=== PATIENT | male | born 1940 | race Caucasian/White ===

== ENCOUNTER 2019-02-09 12:32 | Inpatient (IN) | payer MEDICARE ==
[~2019-02-09] VITALS: Ht 185.4 cm; Wt 75.7 kg
[2019-02-09] VITALS (7 sets, daily range): BP systolic 139–160; BP diastolic 72–94
[~2019-02-09 12:32] MED LIST: NO MEDS
--- NOTE | 2019-02-09 12:42 | NUR ---
BIB ra found by son altered from home. Patient changed into gown, patient a/ox2-3, breathing even and unlabored, no sob noted. PIV on left hand patent and flushes well. Attached to the marketing project lead.
[2019-02-09] MEDS ORDERED: LORAZEPAM INJ 2 MG/ML VIAL ONE (12:48)
--- NOTE | 2019-02-09 12:54 | NUR ---
patient taken to ct.
[2019-02-09 13:00] LABS: BASOPHILS # (AUTO) 0.2 /CMM (0.0-0.2); BASOPHILS % (AUTO) 0.5 % (0.0-2.0); HEMATOCRIT 50 % (39-51); HEMOGLOBIN 16.5 g/dL (13.5-17.5); LYMPHOCYTES # (AUTO) 0.5 /CMM (0.8-4.8); LYMPHOCYTES % (AUTO) 1.4 % (20.0-44.0); MEAN CORPUSCULAR HGB CONC 33 g/dl (31.0-36.0); MEAN CORPUSCULAR VOLUME 102 fL (80-96); MONOCYTES # (AUTO) 2.1 /CMM (0.1-1.30); MONOCYTES % (AUTO) 6.1 % (2.0-12.0); PLATELET COUNT (AUTO) 347 /CMM (150-450); RED BLOOD CELL COUNT(AUTO) 4.94 MIL/uL (4.5-6.0)
[2019-02-09] MEDS ORDERED: LORAZEPAM INJ 2 MG/ML VIAL IV ONE (13:00)
[2019-02-09] MEDS ORDERED: IV NS 0.9% 1,000 ML BAG IV ONE ×2 (13:00→13:30)
[2019-02-09 13:02] LABS: WHITE BLOOD COUNT (AUTO) 34.8 K/uL (4.3-11.0)
[2019-02-09 13:22] LABS: ALANINE AMINOTRANSFERASE 144 U/L (12-78); ALBUMIN 2.4 g/dL (3.4-5.0); ALCOHOL, BLOOD < 3 mg/dL (0-0); ALKALINE PHOSPHATASE 127 U/L (46-116); ASPARTATE AMINOTRANSFERASE 119 U/L (15-37); BILIRUBIN,DIRECT 0.4 mg/dL (0.0-0.2); CALCIUM, SERUM 9.6 mg/dL (8.5-10.1); CARBON DIOXIDE 18 mmol/L (21-32); CHLORIDE 94 mmol/L (98-107); CREATININE 6.6 mg/dL (0.6-1.3); GLUCOSE 94 mg/dL (74-106); POTASSIUM 5.9 mmol/L (3.5-5.1); SODIUM SERUM 133 mmol/L (136-145); TOTAL PROTEIN, SERUM 7.2 g/dL (6.4-8.2)
[2019-02-09 13:23] LABS: ACETAMINOPHEN 0 ug/ml (10-30); SALICYLATE 1.4 mg/dL (2.8-20.0); UREA NITROGEN, BLOOD 168 mg/dL (7-18)
[2019-02-09] MEDS ORDERED: CEFEPIME 1 GM in IV NS 0.9% 50 ML IV STA (13:25)
[2019-02-09] MEDS ORDERED: VANCOMYCIN 1 GM in IV NS 0.9% 250 ML IV STA (13:25)
[2019-02-09 13:32] LABS: APPEARANCE,URINE Cloudy (CLEAR); BILIRUBIN,URINE Negative (NEGATIVE); BLOOD, URINE Large Ery/uL (NEGATIVE); KETONES,URINE Negative (NEGATIVE); LEUKOCYTE ESTERASE ,URINE Large (NEGATIVE); NITRITE, URINE Negative (NEGATIVE); PROTEIN,URINE 100 mg/dl (NEGATIVE); UGLUCOSE Negative (NEGATIVE); UROBILINOGEN,URINE 0.2 EU/dL (0.2)
[2019-02-09 13:33] LABS: COLOR,URINE Dark Yellow (YELLOW)
[2019-02-09 13:33] LABS: THYROID STIMULATING HORMONE 0.471 uIU/mL (0.358-3.74)
[2019-02-09 13:40] LABS: BACTERIA,URINE Moderate /HPF (None Seen); RBC,URINE 50-80 /HPF (0-2); SQUAMOUS EPITHELIAL CELL,UR Few /HPF (None Seen); WBC,URINE 80-100 /HPF (0-3)
--- NOTE | 2019-02-09 13:47 | NUR ---
CALLED NURSING SUP. FOR ICU BED
--- NOTE | 2019-02-09 14:02 | NUR ---
PATIENT SLEEPING BUT EASILY AROUSABLE, DAVID. SOFT WRIST RESTRAINTS ORDERED BY DR. HARDEN TO PREVENT PATIENT FROM PULLING OUT LINES OR TUBING.
[2019-02-09 14:07] LABS: BAND % (MANUAL) 1 % (0.0-5.0); LYMPHOCYTES % (MANUAL) 2 % (16-48); MONOCYTES % (MANUAL) 6 % (0-11.0); NEUTROPHILS % (MANUAL) 91 (42-76)
--- NOTE | 2019-02-09 14:10 | NUR ---
ICU 261
[2019-02-09] MEDS ORDERED: Z GUARD REMEDY 2 OZ OINT TP PRN (15:00)
[2019-02-09] MEDS ORDERED: ONDANSETRON HCL/PF 4 MG/2 ML VIAL IVP PRN (15:00)
--- NOTE | 2019-02-09 15:00 | NUR ---
URINE OUTPUT 2800ML AT THIS TIME.
--- NOTE | 2019-02-09 15:26 | NUR ---
attempted to call for report again, per ICU, no nurse available for the patient at this time.
[2019-02-09] MEDS ORDERED: SULF1TAB48 PO (15:46)
[2019-02-09] MEDS ORDERED: CYCL10TA9 PO (15:46)
[2019-02-09] MEDS ORDERED: ASPI-605 PO (15:46)
[2019-02-09] MEDS ORDERED: OXYC-128 PO (15:46)
--- NOTE | 2019-02-09 16:45 | NUR ---
REPORT GIVEN TO MAGDY LYNNE. URINE BAG EMPTIED WITH 1700ML URINE.
--- NOTE | 2019-02-09 17:22 | NUR ---
PATIENT TRANSFERRED TO ROOM 261 VIA ACLS PROTOCOL. PATIENT AROUSABLE, BREATHING EVEN AND UNLABORED, NO SOB NOTED. LLAMAS CATHETER BAG SHOWS YELLOW URINE. PATIENT ENDORSED TO EL LYNNE.
[2019-02-09] MEDS: CEFEPIME 1 GM in IV D5W 50 ML IV SCH (17:26)
[2019-02-09] MEDS: IV NS 0.9% 1,000 ML IV PRN (17:27)
--- NOTE | 2019-02-09 20:00 | NUR ---
RN NOTES RECEIVED PATIENT REP[ORT FROM AM RN. PATIENT IS IN BED SLEEPING BUT AROUSED EASILY . PATIENT IS A/OX1 WITH CONFUSION. NO COMPLAINT OF PAIN OR SOB AT THIS TIME. ST ON DATA BASE ADMINISTRATOR, PT IS ON RA SAT IS WNL. PATIENT IS NPO . LEFT HAND G18 AND RIGHT AC G18 IV LINES ARE PATIENT AND INTACT WITH IVF AT 125ML/HR. LLAMAS CATHETER IS IN PLACE DRAINING YELLOW URINE ON GRAVITY. ALL SAFETY MEASURES ARE IMPLEMENTED BED IN LOW, LOCKED POSITION, CALL LIGHT IN REACH. WILL CONTINUE TO MONITOR PATIENT CLOSELY.
[2019-02-09] MEDS ORDERED: CEFEPIME 1 GM VIAL IM SCH (21:00)
[2019-02-10] VITALS (26 sets, daily range): BP systolic 115–163; BP diastolic 35–99
[2019-02-10] MEDS: IV NS 0.9% 1,000 ML IV PRN ×3 (02:13→17:37)
[2019-02-10 05:06] LABS: BASOPHILS % (AUTO) 0.2 % (0.0-2.0); HEMATOCRIT 46 % (39-51); HEMOGLOBIN 15.3 g/dL (13.5-17.5); LYMPHOCYTES # (AUTO) 0.4 /CMM (0.8-4.8); LYMPHOCYTES % (AUTO) 1.8 % (20.0-44.0); MEAN CORPUSCULAR HGB CONC 33 g/dl (31.0-36.0); MEAN CORPUSCULAR VOLUME 101 fL (80-96); MONOCYTES # (AUTO) 2.2 /CMM (0.1-1.30); MONOCYTES % (AUTO) 9.2 % (2.0-12.0); NEUTROPHILS # (AUTO) 20.8 /CMM (1.8-8.9); NEUTROPHILS % (AUTO) 88.8 % (43.0-81.0); PLATELET COUNT (AUTO) 329 /CMM (150-450); RED BLOOD CELL COUNT(AUTO) 4.55 MIL/uL (4.5-6.0); WHITE BLOOD COUNT (AUTO) 23.4 K/uL (4.3-11.0)
[2019-02-10 05:20] LABS: CHOLESTEROL 104 mg/dL (<200); HDL CHOLESTEROL 18 mg/dL (40-60); LDL 62 mg/dL (0-99); THYROID STIMULATING HORMONE 0.558 uIU/mL (0.358-3.74); TRIGLYCERIDES 133 mg/dL (30-150)
[2019-02-10 05:38] LABS: ALANINE AMINOTRANSFERASE 119 U/L (12-78); ALBUMIN 1.9 g/dL (3.4-5.0); ALKALINE PHOSPHATASE 99 U/L (46-116); ASPARTATE AMINOTRANSFERASE 64 U/L (15-37); BILIRUBIN,TOTAL 0.8 mg/dL (0.2-1.0); CALCIUM, SERUM 8.4 mg/dL (8.5-10.1); CARBON DIOXIDE 19 mmol/L (21-32); CHLORIDE 112 mmol/L (98-107); CREATININE 2.5 mg/dL (0.6-1.3); GLUCOSE 172 mg/dL (74-106); MAGNESIUM 3.4 mg/dL (1.8-2.4); PHOSPHORUS 4.6 mg/dL (2.5-4.9); POTASSIUM 4.5 mmol/L (3.5-5.1); SODIUM SERUM 146 mmol/L (136-145); TOTAL PROTEIN, SERUM 6.2 g/dL (6.4-8.2)
[2019-02-10 05:46] LABS: UREA NITROGEN, BLOOD 105 mg/dL (7-18)
--- NOTE | 2019-02-10 07:10 | NUR ---
RN INITIAL NOTES RECEIVED PT AWAKE, A/OX1. ABLE TO ANSWER SIMPLE QUESTIONS AND FOLLOWS SIMPLE COMMANDS. ON 02 VIA NC AT 2LPM. HOB ELEVATED. NO RESPIRATORY DISTRESS NOTED. DENIES ANY PAIN. IV LINES IN PLACE. IVF INFUSING. FC IN PLACE. NO HEMATURIA NOTED. WILL CLOSELY MONITOR FOR ANY CHANGE IN MENTAL STATUS.
--- NOTE | 2019-02-10 07:33 | NUR ---
RN CLOSING NOTES PATIENT IS IN BED RESTING , A/OX2 WITH SOME CONFUSION. RIGHT AC G18 AND LEFT HAND G18 IV LINES ARE PATIENT AND INTACT WITH IV FLUIDS AT 125ML/HR. LLAMAS CATH IS IN PLACE DRAINING ON GRAVITY. SR/ST ON COMMAND POST SUPERINTENDENT DURING MY SHIFT. ALL SAFETY MEASURES ARE IN PLACE , ALL NEEDS HAS BEEN ANTICIPATED , PATIENT KEPT CLEAN , DRY AND REPOSITIONED Q2HR. PATIENT CARE HAS BEEN ENDORSED TO AM RN FOR ELL TUTOR.
--- NOTE | 2019-02-10 07:56 | NUR ---
WOUND CARE CONSULT: PT PRESENTS WITH MULTIPLE SKIN ISSUES INCLUDING RAISED AREA TO FOREHEAD, MULTIPLE DRY ABRASIONS AND AREAS OF SKIN DISCOLORATION, LEFT 4TH TOE OPEN WOUND AND LEFT LOWER LEG SKIN TEAR, SACRAL SCAR, ALL PRESENT ON ADMISSION. RECOMMEND DPM CONSULT. DR DUNCAN AWARE OF CONSULT REQUEST. DEFER TO MD FOR RAISED AREA TO FOREHEAD. CT OF HEAD WAS DONE. FARHAD LOPEZ NOTED. PT CONTINENT AT THIS TIME WITH FARHAD. PT STATES "I FELL DOWN WHILE SURFING". RECOMMENDATIONS MADE FOR SKIN PROTECTION. DISCUSSED WITH NURSING STAFF. WILL SEE PRN. DEFER TO PODIATRY FOR LOWER EXTREMITY WOUND TREATMENT PLAN. MD IN AGREEMENT WITH PLAN OF CARE. Addendum: 02/10/19 at 0800 by CHRISTINE FULLER WNDNU Amended: Links added.
[2019-02-10 08:20] LABS: ABG BASE EXCESS -6.3 mmol/L; ABG OXYGEN SATURATION 97.2 % (92.0-98.5); ABG PCO2 26.5 mmHg (35.0-45.0); ABG PH 7.412 (7.350-7.450); ABG PO2 106.5 mmHg (75.0-100.0); AaDO2 61.9 mmHg; COHb 0.7 % (0.5-1.5); MetHb 0.7 % (0.0-1.5); O2Hb 95.8 % (94.0-97.0); SITE, ABG Right Brachial; VENT MODE, BG NASAL CANNULA
--- NOTE | 2019-02-10 11:00 | NUR ---
RN NOTES SEEN AND EXAMINED BY ROSALIO LOPEZ DNP. PT A/OX1, WITH PERIODS OF CONFUSION. ON IVF. AWARE OF LAB VALUES: WBC 23.4, BUN 105, CREA 2.5, ALL TRENDING DOWN. AWARE OF ALL IMAGING STUDIES. NO NEW ORDER MADE. WILL CONTINUE TO MONITOR
[2019-02-10 11:01] LABS: BILIRUBIN,URINE NEGATIVE (NEGATIVE); BLOOD, URINE 3+ Ery/uL (NEGATIVE); COLOR,URINE YELLOW (YELLOW); KETONES,URINE 1+ (NEGATIVE); LEUKOCYTE ESTERASE ,URINE 2+ (NEGATIVE); NITRITE, URINE NEGATIVE (NEGATIVE); PROTEIN,URINE NEGATIVE (NEGATIVE); UGLUCOSE NEGATIVE (NEGATIVE); UROBILINOGEN,URINE 0.2 EU/dL (0.2)
[2019-02-10 11:03] LABS: APPEARANCE,URINE SLIGHTLY HAZY (CLEAR)
[2019-02-10 11:11] LABS: BACTERIA,URINE Rare /HPF (None Seen); SQUAMOUS EPITHELIAL CELL,UR 0-2 /HPF (None Seen)
[2019-02-10 11:14] LABS: CREATININE, URINE 63.5 MG/DL (30.0-125.0); URINE TOTAL PROTEIN 24.3 mg/dL (0-11.9)
[2019-02-10 11:31] LABS: EOSINOPHIL,URINE None Seen
[2019-02-10] MEDS: CEFEPIME 1 GM in IV D5W 50 ML IV SCH (16:24)
[2019-02-10] MEDS: AMMONIUM LACTATE 227 GM BOTTLE TP SCH (17:37)
--- NOTE | 2019-02-10 18:33 | NUR ---
RN CLOSING NOTES NO SIGNIFICANT CHANGE NOTED. PT A/OX1 WITH PERIODS OF CONFUSION. TOLERATED PO MEAL WELL. IVF INFUSING. ADEQUATE URINE OUTPUT NOTED. KEPT CLEAN AND DRY. REPOSITIONED Q2. TX ORDERED. BLE ELEVATED. CALL LIGHT WITHIN REACH. WILL ENDORSE FOR CONTINUITY OF CARE.
--- NOTE | 2019-02-10 19:30 | NUR ---
Received patient resting oriented x1 with periods of confusion.Reoriented.SR 90's per tele monitoring. Respiration even and unlabored with SPO2 96% on RA.Tolerating po intake.FC to gravity with moderate urine output.Denies any discomfort at present.Safety precaution implemented with call light at bedside within easy reach.Patient for transfer to [facility] pending bed availability.
--- NOTE | 2019-02-10 21:25 | NUR ---
Received report from [facility] ,patient with blood culture positive cocci in clusters. Results reported to ANGELICA,Joe London with orders received and carried out.
--- NOTE | 2019-02-10 21:38 | NUR ---
Patient transferred to [facility] via bed in stable condition accompanied by RN.No belongings. Report given to Rony Araujo RN for continuity of care.
--- NOTE | 2019-02-10 21:51 | NUR ---
TD RN NOTE: RECEIVED PT FROM ICU ALERT AND ORIENTED X1, VERBALLY RESPONSIVE. NO APPARENT DISTRESS NOTED. NO COMPLAINTS OF PAIN OR DISCOMFORT AT THIS TIME. ON ROOM AIR, SATURATING WELL. NO SOB NOTED. SINUS RHYTHM ON TELE MONITOR HR 84BPM. IV ON RIGHT ANTECUBITAL #18 AND LEFT HAND #18 INTACT AND FLUSHING WELL. LLAMAS CATH INTACT AND DRAINING WELL. KEPT CLEAN, DRY AND COMFORTABLE. CALL LIGHT PLACED WITHIN REACH. SAFETY AND FALL PRECAUTIONS OBSERVED AND MAINTAINED. WILL CONTINUE TO MONITOR PT.
[2019-02-10] MEDS ORDERED: VANCOMYCIN 1 GM in IV D5W 250 ML IV SCH (22:00)
[2019-02-10] MEDS ORDERED: VANCOMYCIN 1.75 GM in IV NS 0.9% 500 ML IV ONE (23:00)
[2019-02-10] MEDS ORDERED: VANCOMYCIN 500 MG VIAL ONE (23:45)
[2019-02-10] MEDS ORDERED: VANCOMYCIN 1 GM VIAL ONE (23:53)
[2019-02-11] VITALS: BP 141/79
--- NOTE | 2019-02-11 00:06 | NUR ---
TD RN NOTE: 2 1G VANCOMYCIN PULLED OUT BY CHARGE NURSE, VANCOMYCIN IV GIVEN ORDERED. 500MG VANCO FROM NIGHT LOCKER WASTED.
[2019-02-11] MEDS: IV NS 0.9% 1,000 ML IV PRN ×2 (02:55→16:39)
[2019-02-11 04:00] VITALS: BP 132/73
--- NOTE | 2019-02-11 06:36 | NUR ---
TD RN NOTE: NO CHANGES NOTED THROUGHOUT THE SHIFT. NO APPARENT DISTRESS NOTED. DENIES PAIN AND DISCOMFORT AT THIS TIME. ON ROOM AIR, BREATHING EVEN AND UNLABORED WITH NORMAL RESPIRATIONS. IV ON RIGHT ANTECUBITAL #18 AND LEFT HAND #18 INTACT AND PATENT, IVF INFUSING WELL. SINUS RHYTHM ON TELE MONITOR HR 84BPM. KEPT CLEAN, DRY AND COMFORTABLE. SAFETY AND FALL PRECAUTIONS OBSERVED AND MAINTAINED. WILL ENDORSE TO DAY SHIFT RN FOR CONTINUITY OF CARE.
[2019-02-11 07:38] LABS: BASOPHILS % (AUTO) 0.1 % (0.0-2.0); EOSINOPHILS % (AUTO) 0.2 % (0.0-6.0); HEMATOCRIT 39 % (39-51); LYMPHOCYTES # (AUTO) 0.6 /CMM (0.8-4.8); LYMPHOCYTES % (AUTO) 3.9 % (20.0-44.0); MEAN CORPUSCULAR HGB CONC 33 g/dl (31.0-36.0); MEAN CORPUSCULAR VOLUME 101 fL (80-96); MONOCYTES # (AUTO) 1.6 /CMM (0.1-1.30); NEUTROPHILS # (AUTO) 13.6 /CMM (1.8-8.9); NEUTROPHILS % (AUTO) 85.8 % (43.0-81.0); PLATELET COUNT (AUTO) 292 /CMM (150-450); RED BLOOD CELL COUNT(AUTO) 3.89 MIL/uL (4.5-6.0); WHITE BLOOD COUNT (AUTO) 15.8 K/uL (4.3-11.0)
[2019-02-11 08:00] VITALS: BP 117/78
[2019-02-11 08:01] LABS: ALANINE AMINOTRANSFERASE 106 U/L (12-78); ALBUMIN 1.6 g/dL (3.4-5.0); ALKALINE PHOSPHATASE 83 U/L (46-116); ASPARTATE AMINOTRANSFERASE 50 U/L (15-37); BILIRUBIN,TOTAL 0.8 mg/dL (0.2-1.0); CALCIUM, SERUM 8.1 mg/dL (8.5-10.1); CARBON DIOXIDE 23 mmol/L (21-32); CHLORIDE 109 mmol/L (98-107); GLUCOSE 131 mg/dL (74-106); PHOSPHORUS 1.4 mg/dL (2.5-4.9); POTASSIUM 4.5 mmol/L (3.5-5.1); SODIUM SERUM 141 mmol/L (136-145); TOTAL PROTEIN, SERUM 5.3 g/dL (6.4-8.2); UREA NITROGEN, BLOOD 33 mg/dL (7-18)
[2019-02-11 08:04] LABS: CREATINE KINASE, TOTAL 234 U/L (39-308)
[2019-02-11] MEDS ORDERED: FEE PK DOSING 1 MIN EA MC ONE (08:20)
[2019-02-11] MEDS: FINASTERIDE (5 MG) 5 MG TABLET PO SCH (09:02)
[2019-02-11] MEDS: TAMSULOSIN 0.4 MG CAP.SR.24H PO SCH ×2 (09:02→21:29)
[2019-02-11] MEDS: AMMONIUM LACTATE 227 GM BOTTLE TP SCH ×2 (09:04→16:38)
[2019-02-11 09:05] LABS: LYMPHOCYTES % (MANUAL) 2 % (16-48); MONOCYTES % (MANUAL) 5 % (0-11.0); NEUTROPHILS % (MANUAL) 93 (42-76)
[2019-02-11] MEDS ORDERED: K PHOS NEUTRAL 250 MG TABLET PO ONE (11:30)
[2019-02-11] MEDS ORDERED: BISACODYL (5 MG) 5 MG TABLET.DR PO PRN (11:30)
[2019-02-11] MEDS ORDERED: SENNOSIDES 8.6 MG TABLET PO ONE (11:30)
[2019-02-11] MEDS ORDERED: MOUTH KOTE MM PRN (11:30)
[2019-02-11] MEDS: ENSURE ENLIVE CHOC 237 ML CAN PO SCH ×2 (14:30→18:05)
[2019-02-11 16:00] VITALS: BP 128/63
[2019-02-11] MEDS: VANCOMYCIN 1 GM in IV D5W 250 ML IV SCH (16:31)
[2019-02-11] MEDS: CEFEPIME 2 GM in IV D5W 100 ML IV SCH (17:50)
--- NOTE | 2019-02-11 18:30 | NUR ---
ms rn notes pt requested muscle relaxant and anti inflammatory med for lower back pain 11/19. dr garg ordered 400mg motrin 1x dose and robaxin 500mg 1x dose. will cont to monitor
[2019-02-11] MEDS ORDERED: METHOCARBAMOL (500MG) 500 MG TABLET PO ONE (19:00)
[2019-02-11] MEDS ORDERED: IBUPROFEN 400 MG TABLET PO ONE (19:00)
--- NOTE | 2019-02-11 19:03 | NUR ---
ms rn end of shift notes pt tolerated all procedures/meds given. tolerated well. stable to endorse for oncoming pm nurse. all needs attended. family at bedside.
--- NOTE | 2019-02-11 19:37 | NUR ---
RN OPENING NOTES: PATIENT IN BED WITH FAMILY AT BEDSIDE. DENIES ANY PAIN AT THE MOMENT. IN NO ACUTE DISTRESS. RIGHT AC G18 AND LEFT HAND G18 IV LINES ARE PATIENT AND INTACT WITH IV FLUIDS RUNNING. LLAMAS CATH IS IN PLACE DRAINING ON GRAVITY. DOWNGRADED TO MS. ALL SAFETY MEASURES ARE IN PLACE , ALL NEEDS HAS BEEN ANTICIPATED ,WILL KEEP PATIENT KEPT CLEAN , DRY AND REPOSITION Q2HR. WILL CONTINUE TO MONITER AND CARRY OUT PLAN OF CARE.
[2019-02-11 20:00] VITALS: BP 115/61
[2019-02-12] MEDS: ACETAMINOPHEN 325 MG TABLET PO PRN ×3 (00:10→20:42)
[2019-02-12] MEDS: IV NS 0.9% 1,000 ML IV PRN (03:44)
[2019-02-12] MEDS: VANCOMYCIN 1 GM in IV D5W 250 ML IV SCH ×2 (03:45→15:07)
[2019-02-12 04:00] VITALS: BP 120/66
[2019-02-12] MEDS: CEFEPIME 2 GM in IV D5W 100 ML IV SCH ×2 (04:59→16:13)
--- NOTE | 2019-02-12 06:00 | NUR ---
MD SILVA TO ALERT HIM ABOUT PTS CONDITION. WHILE ROUNDS, NOTED PT SOB AND APENIC WHILE AWAKE AND A&0x4.PUT IN A CHEST X RAY STAT. CONTIOUS PULSE OX IS ON AND SATTING AT 99% ON 3 LITER NC.
--- NOTE | 2019-02-12 06:00 | NUR ---
0600 PATIENT NOTED TO BE A LITTLE OUT OF BREATH, PLACED ON HIGH MYLES'S POSITION FOR MAXIMUM OXYGENATION, PLACED ON O2 AT 2LPM VIA NC, O2 SATURATION AT 99% WHEN CHECKED, LUNG SOUNDS CLEAR TO AUSCULTATION, PATIENT DENIES CHEST PAIN OR ANY DISCOMFORT WHEN ASKED. PAGED MD TO NOTIFY. AWAITING CALL BACK.
--- NOTE | 2019-02-12 06:15 | NUR ---
LEFT HAND IV REMOVED DUE TO LEAKAGE. RAC IN TACT AND RUNNING NS 70 ML/HR NS.
--- NOTE | 2019-02-12 06:42 | NUR ---
RN NOTE: PT IN DISCOMFORT AT THIS TIME. PUT ON NC DUE TO SOB, AND APNIC EPSIDOES WHILE AWAKE. STATES THAT THIS HAS BEEN OCCURING FOR THE PAST TWO DAYS. IS SATURATING WELL. NO SOB NOTED. MD AWARE. . IV ON RIGHT ANTECUBITAL #18 RUNNING 70 ML HR FLUSHING WELL. LLAMAS CATH INTACT AND DRAINING WELL. 1500 OUT. KEPT CLEAN, DRY AND COMFORTABLE. CALL LIGHT PLACED WITHIN REACH. SAFETY AND FALL PRECAUTIONS OBSERVED AND MAINTAINED. WILL ENDORSE TO AM NURSE CONTINUE TO MONITOR PT AND CARRY OUT PLAN OF CARE.
[2019-02-12 07:40] LABS: BASOPHILS % (AUTO) 0.2 % (0.0-2.0); EOSINOPHILS % (AUTO) 0.7 % (0.0-6.0); HEMATOCRIT 39 % (39-51); HEMOGLOBIN 12.9 g/dL (13.5-17.5); LYMPHOCYTES # (AUTO) 0.8 /CMM (0.8-4.8); LYMPHOCYTES % (AUTO) 5.6 % (20.0-44.0); MEAN CORPUSCULAR HGB CONC 33 g/dl (31.0-36.0); MEAN CORPUSCULAR VOLUME 101 fL (80-96); MONOCYTES # (AUTO) 1.2 /CMM (0.1-1.30); MONOCYTES % (AUTO) 7.7 % (2.0-12.0); NEUTROPHILS # (AUTO) 12.9 /CMM (1.8-8.9); NEUTROPHILS % (AUTO) 85.8 % (43.0-81.0); PLATELET COUNT (AUTO) 303 /CMM (150-450); RED BLOOD CELL COUNT(AUTO) 3.86 MIL/uL (4.5-6.0)
[2019-02-12 08:00] VITALS: BP 132/69
--- NOTE | 2019-02-12 08:00 | NUR ---
MS RN NOTE PATIENT IN BED , ALL NEEDS ATTENDED. WITH SLIGHT SOB NOTED ON 3L OF O2 VIA NC , WITH LLAMAS CATH TO GRAVITY WITH YELLOW COLOR URINE, RT AC HL INTACT ON IVF ORDERED , BED IN LOWEST AND LOCKED POSITION .WILL CONT TO MONITOR CLOSELY PLAN OF CARE DISCUSSED WITH PATIENT
[2019-02-12 08:06] LABS: CALCIUM, SERUM 8.1 mg/dL (8.5-10.1); CARBON DIOXIDE 26 mmol/L (21-32); CHLORIDE 104 mmol/L (98-107); CREATININE 0.7 mg/dL (0.6-1.3); GLUCOSE 127 mg/dL (74-106); MAGNESIUM 1.7 mg/dL (1.8-2.4); PHOSPHORUS 2.1 mg/dL (2.5-4.9); POTASSIUM 4.3 mmol/L (3.5-5.1); SODIUM SERUM 135 mmol/L (136-145); UREA NITROGEN, BLOOD 20 mg/dL (7-18)
[2019-02-12] MEDS: FINASTERIDE (5 MG) 5 MG TABLET PO SCH (09:03)
[2019-02-12] MEDS: ENSURE ENLIVE CHOC 237 ML CAN PO SCH ×3 (09:05→16:13)
[2019-02-12] MEDS: AMMONIUM LACTATE 227 GM BOTTLE TP SCH ×2 (09:05→16:13)
--- NOTE | 2019-02-12 11:30 | NUR ---
ms rn note spoke with dr michelle Fleming dnp notifyed that patient c\o constipation also on ivf chest xray with increased lt pleural effusion ,ordered Lasix ,Lovenox and laxative , will f\u
[2019-02-12] MEDS ORDERED: MAGNESIUM CITRATE 296 ML BOTTLE PO ONE (12:00)
[2019-02-12] MEDS ORDERED: LACTULOSE 10 G/15 ML UDC (PYXIS) PO PRN (12:00)
[2019-02-12] MEDS ORDERED: FUROSEMIDE 20 MG/2 ML VIAL IV ONE (12:00)
[2019-02-12] MEDS: Magnesium 1GM/D5W 100ML PREMIX 100 ML IV SCH ×2 (12:42→14:03)
[2019-02-12] MEDS: ENOXAPARIN SODIUM 40 MG/0.4 ML DISP.SYRIN SQ SCH (12:44)
[2019-02-12] MEDS ORDERED: K PHOS NEUTRAL 250 MG TABLET PO ONE (13:00)
[2019-02-12 14:09] LABS: PTH, INTACT 23 pg/mL (15-65)
--- NOTE | 2019-02-12 15:14 | NUR ---
ms rnnnote family a bedside, no sob noted, keep clean dry , call light within reach ,mag citrate given ,will monitor
[2019-02-12 16:00] VITALS: BP 119/66
[2019-02-12] MEDS: LACTOBACILLUS RHAMNOSUS GG 1 EACH CAP.SPRINK PO SCH (16:13)
--- NOTE | 2019-02-12 19:08 | NUR ---
ms rn note family at bedside all needs attended, able to make bm , will cont to monitor closely
[2019-02-12 20:00] VITALS: BP 138/69
[2019-02-12] MEDS: TAMSULOSIN 0.4 MG CAP.SR.24H PO SCH (20:42)
[2019-02-13 04:00] VITALS: BP 127/61
[2019-02-13] MEDS: VANCOMYCIN 1.25 GM in IV D5W 500 ML IV SCH ×2 (04:19→15:43)
[2019-02-13] MEDS: CEFEPIME 2 GM in IV D5W 100 ML IV SCH ×2 (05:51→18:11)
[2019-02-13 07:04] LABS: BASOPHILS % (AUTO) 0.1 % (0.0-2.0); EOSINOPHILS % (AUTO) 0.9 % (0.0-6.0); HEMATOCRIT 40 % (39-51); HEMOGLOBIN 13.1 g/dL (13.5-17.5); LYMPHOCYTES # (AUTO) 0.9 /CMM (0.8-4.8); LYMPHOCYTES % (AUTO) 5.3 % (20.0-44.0); MEAN CORPUSCULAR HGB CONC 33 g/dl (31.0-36.0); MEAN CORPUSCULAR VOLUME 101 fL (80-96); MONOCYTES # (AUTO) 1.2 /CMM (0.1-1.30); MONOCYTES % (AUTO) 6.8 % (2.0-12.0); NEUTROPHILS # (AUTO) 15.4 /CMM (1.8-8.9); NEUTROPHILS % (AUTO) 86.9 % (43.0-81.0); PLATELET COUNT (AUTO) 369 /CMM (150-450); RED BLOOD CELL COUNT(AUTO) 3.94 MIL/uL (4.5-6.0); WHITE BLOOD COUNT (AUTO) 17.7 K/uL (4.3-11.0)
--- NOTE | 2019-02-13 07:25 | NUR ---
RN OPENING NOTES RECEIVED PATIENT IN BED, AWAKE AND ABLE TO MAKE NEEDS KNOWN. PATIENT IS ALERT AND ORIENTED X4. NO PAIN OR ACUTE DISTRESS AT THIS TIME. RESPIRATION EVEN AND UNLABORED. SKIN IS DRY WARM TO TOUCH. PATIENT NOTED WITH IV ACCESS ON RIGHT AC G18. INTACT AND PATENT. FLUSHING WELL. LLAMAS CATH IS IN PLACE DRAINING ON GRAVITY. ALL NEEDS ANTICIPATED. KEPT CLEAN AND DRY. CALL LIGHT WITHIN REACHED. BED LOCKED AND IN LOWEST POSITION. SAFETY MAINTAINED. PLAN OF CARE DISCUSSED. WILL CONTINUE TO MONITOR.
[2019-02-13 07:28] LABS: CARBON DIOXIDE 30 mmol/L (21-32); CHLORIDE 100 mmol/L (98-107); CREATININE 0.9 mg/dL (0.6-1.3); GLUCOSE 171 mg/dL (74-106); MAGNESIUM 1.8 mg/dL (1.8-2.4); PHOSPHORUS 2.2 mg/dL (2.5-4.9); POTASSIUM 4.1 mmol/L (3.5-5.1); SODIUM SERUM 133 mmol/L (136-145); UREA NITROGEN, BLOOD 17 mg/dL (7-18)
[2019-02-13 08:00] VITALS: BP 143/75
[2019-02-13] MEDS: AMMONIUM LACTATE 227 GM BOTTLE TP SCH ×2 (08:02→17:41)
[2019-02-13] MEDS: LACTOBACILLUS RHAMNOSUS GG 1 EACH CAP.SPRINK PO SCH ×2 (08:02→17:40)
[2019-02-13] MEDS: FINASTERIDE (5 MG) 5 MG TABLET PO SCH (08:02)
[2019-02-13] MEDS: ACETAMINOPHEN 325 MG TABLET PO PRN ×2 (08:02→21:57)
[2019-02-13] MEDS: ENOXAPARIN SODIUM 40 MG/0.4 ML DISP.SYRIN SQ SCH (08:04)
[2019-02-13] MEDS: ENSURE ENLIVE CHOC 237 ML CAN PO SCH ×3 (08:09→17:41)
[2019-02-13 08:52] LABS: LYMPHOCYTES % (MANUAL) 4 % (16-48); MONOCYTES % (MANUAL) 10 % (0-11.0); NEUTROPHILS % (MANUAL) 86 (42-76)
[2019-02-13 10:07] LABS: *SPE A/G RATIO 0.8 (0.7-1.7); *SPE ALBUMIN 2.1 g/dL (2.9-4.4); *SPE ALPHA-1-GLOBULIN 0.5 g/dL (0.0-0.4); *SPE ALPHA-2-GLOBULIN 0.7 g/dL (0.4-1.0); *SPE BETA GLOBULIN 0.8 g/dL (0.7-1.3); *SPE GLOBULIN, TOTAL 2.8 g/dL (2.2-3.9); *SPE M-SPIKE Not Observed g/dL (Not Observed); *SPEGAMMA GLOBULIN 0.9 g/dL (0.4-1.8)
[2019-02-13] MEDS: NAPROXEN 500 MG TABLET PO PRN (12:16)
[2019-02-13 16:00] VITALS: BP 130/78
[2019-02-13] MEDS ORDERED: K PHOS NEUTRAL 250 MG TABLET PO ONE (17:30)
--- NOTE | 2019-02-13 18:55 | NUR ---
RN CLOSING NOTES PATIENT IN BED AWAKE ALERT AND ABLE TO MAKE NEEDS KNOWN. NO PAIN OR ACUTE DISTRESS AT THIS TIME. RESPIRATION EVEN AND UNLABORED. SKIN IS DRY WARM TO TOUCH. PATIENT CONTINUES TO REMAIN IN STABLE CONDITION. PROVIDED COMFORT AND SAFETY. IV ACCESS ON RFA INTACT AND PATENT. FLUSHING WELL. IN AND OUT CATH WAS DONE AND WAS ABLE TO DRAIN ABOUT 600CC. ANGELICA MADDEN MADE AWARE AND WAS RELAYED TO DR. LOPEZ. ALL NEEDS ANTICIPATED. KEPT CLEAN AND DRY. CALL LIGHT WITHIN REACHED. WILL CONTINUE TO MONITOR CLOSELY. ENDORSED TO PM NURSE FOR ISREAL.
[2019-02-13 20:00] VITALS: BP 124/69
[2019-02-13] MEDS: TAMSULOSIN 0.4 MG CAP.SR.24H PO SCH (21:57)
[2019-02-14] MEDS: VANCOMYCIN 1.25 GM in IV D5W 500 ML IV SCH ×2 (03:18→17:16)
[2019-02-14] MEDS: NAPROXEN 500 MG TABLET PO PRN ×2 (03:19→21:36)
[2019-02-14 04:00] VITALS: BP 132/72
[2019-02-14] MEDS: CEFEPIME 2 GM in IV D5W 100 ML IV SCH ×2 (05:01→19:34)
[2019-02-14 07:08] LABS: BASOPHILS % (AUTO) 0.2 % (0.0-2.0); EOSINOPHILS % (AUTO) 1.9 % (0.0-6.0); HEMATOCRIT 41 % (39-51); HEMOGLOBIN 13.2 g/dL (13.5-17.5); LYMPHOCYTES # (AUTO) 0.9 /CMM (0.8-4.8); MEAN CORPUSCULAR HGB CONC 33 g/dl (31.0-36.0); MEAN CORPUSCULAR VOLUME 102 fL (80-96); MONOCYTES # (AUTO) 1.2 /CMM (0.1-1.30); MONOCYTES % (AUTO) 8.3 % (2.0-12.0); NEUTROPHILS # (AUTO) 12.1 /CMM (1.8-8.9); NEUTROPHILS % (AUTO) 83.6 % (43.0-81.0); PLATELET COUNT (AUTO) 388 /CMM (150-450); WHITE BLOOD COUNT (AUTO) 14.5 K/uL (4.3-11.0)
[2019-02-14 07:28] LABS: CALCIUM, SERUM 8.5 mg/dL (8.5-10.1); CARBON DIOXIDE 31 mmol/L (21-32); CHLORIDE 101 mmol/L (98-107); CREATININE 0.8 mg/dL (0.6-1.3); GLUCOSE 131 mg/dL (74-106); MAGNESIUM 1.7 mg/dL (1.8-2.4); PHOSPHORUS 2.4 mg/dL (2.5-4.9); POTASSIUM 4.1 mmol/L (3.5-5.1); SODIUM SERUM 135 mmol/L (136-145); UREA NITROGEN, BLOOD 20 mg/dL (7-18)
[2019-02-14 08:00] VITALS: BP 99/60
[2019-02-14 09:00] LABS: BAND % (MANUAL) 3 % (0.0-5.0); EOSINOPHILS % (MANUAL) 3 % (0-4); LYMPHOCYTES % (MANUAL) 4 % (16-48); MONOCYTES % (MANUAL) 8 % (0-11.0); NEUTROPHILS % (MANUAL) 82 (42-76)
[2019-02-14] MEDS: LACTOBACILLUS RHAMNOSUS GG 1 EACH CAP.SPRINK PO SCH ×2 (09:49→16:10)
[2019-02-14] MEDS: FINASTERIDE (5 MG) 5 MG TABLET PO SCH (09:49)
[2019-02-14] MEDS: ENOXAPARIN SODIUM 40 MG/0.4 ML DISP.SYRIN SQ SCH (09:50)
[2019-02-14] MEDS: ENSURE ENLIVE CHOC 237 ML CAN PO SCH ×3 (09:59→17:37)
[2019-02-14] MEDS ORDERED: K PHOS NEUTRAL 250 MG TABLET PO ONE (11:30)
[2019-02-14] MEDS: Magnesium 1GM/D5W 100ML PREMIX 100 ML IV SCH ×2 (12:06→12:39)
[2019-02-14] MEDS ORDERED: Magnesium 1GM/D5W 100ML PREMIX PIGGYBACK IV ONE (15:00)
[2019-02-14] MEDS ORDERED: Magnesium 1GM/D5W 100ML PREMIX 100 ML IV SCH (15:30)
[2019-02-14 16:00] VITALS: BP 126/70
[2019-02-14] MEDS: AMMONIUM LACTATE 227 GM BOTTLE TP SCH ×2 (16:15→17:16)
[2019-02-14 20:00] VITALS: BP 125/74
[2019-02-14] MEDS: TAMSULOSIN 0.4 MG CAP.SR.24H PO SCH (21:36)
[2019-02-15] MEDS: ACETAMINOPHEN 325 MG TABLET PO PRN (02:38)
[2019-02-15 04:00] VITALS: BP 124/64
[2019-02-15] MEDS: VANCOMYCIN 1.25 GM in IV D5W 500 ML IV SCH ×3 (04:20→16:16)
[2019-02-15] MEDS: CEFEPIME 2 GM in IV D5W 100 ML IV SCH ×2 (05:11→17:33)
[2019-02-15 07:16] LABS: MAGNESIUM 1.8 mg/dL (1.8-2.4); PHOSPHORUS 2.5 mg/dL (2.5-4.9)
--- NOTE | 2019-02-15 07:52 | NUR ---
MS RN NOTE RECEIVED PATIENT, IN BED , ALERT , ORIENTED , ABLE TO EAT SELF , WITH LLAMAS CATH TO GRAVITY WITH YELLOW COLOR URINE , RT WRIST HL INTACT NO S\S INFECTION NOTED , BED IN LOWEST AND LOCKED POSITION , CALL LIGHT WITHIN REACH ON RA NO SOB NOTED AT THIS TIME, WILL CONT TO MONITOR CLOSELY
[2019-02-15 08:00] VITALS: BP 120/68
[2019-02-15] MEDS: ENOXAPARIN SODIUM 40 MG/0.4 ML DISP.SYRIN SQ SCH (08:04)
[2019-02-15] MEDS: FINASTERIDE (5 MG) 5 MG TABLET PO SCH (08:05)
[2019-02-15] MEDS: LACTOBACILLUS RHAMNOSUS GG 1 EACH CAP.SPRINK PO SCH ×2 (08:05→16:23)
[2019-02-15] MEDS: ENSURE ENLIVE CHOC 237 ML CAN PO SCH ×3 (08:06→16:24)
[2019-02-15] MEDS: AMMONIUM LACTATE 227 GM BOTTLE TP SCH ×2 (08:10→16:24)
--- NOTE | 2019-02-15 12:12 | NUR ---
MS RN NOTE BRAZER HELPER INDUCTION AT BEDSIDE DISCUSSING WITH PATIENT DISCHARGE PLANNING. WILL F\U
--- NOTE | 2019-02-15 13:09 | NUR ---
MS LYNNE NNOTE NOTIFIED TO JAVED MEJIA DNP THAT PATIENT HAS SMALL MULTIPLE BLISTERS AND LOWER BACK AND BOTH BUTTOCKS, STSTED THAT WILL SEE PATIENT NOW Addendum: 02/15/19 at 1321 by RODRICK VARGHESE RN PER COMPUTER EDUCATION PROFESSOR AND ROSALIO PAYTON
[2019-02-15] MEDS: LIDOCAINE 5% (PATCH) 1 EA PATCH TP SCH (14:08)
--- NOTE | 2019-02-15 14:57 | NUR ---
MS LYNNE NOTE TRANSFERRED TO ROOM 103 DUE TO PATIENT NEEDS TO PLACE TO CONTACT ISOLATION FOR SHINGLES PER MARCIAL MEJIA Addendum: 02/15/19 at 1559 by RODRICK VARGHESE RN CORRECTION IN SPELLING PATIENT NEED TO PLACE TO ISOLATION FOR HERPES ZOSTER PER DR ROSALIO MEJIA
[2019-02-15 16:00] VITALS: BP 120/68
--- NOTE | 2019-02-15 17:47 | NUR ---
MS RN NOTE NEW HL,ON RT FA MARISA 22 INSERTED WITH GOOD BLOOD RETURN , ALL NEEDS ATTENDED
[2019-02-15 20:00] VITALS: BP 117/56
[2019-02-15] MEDS ORDERED: VALACYCLOVIR HCL 500 MG TABLET ONE (21:16)
[2019-02-15] MEDS: NAPROXEN 500 MG TABLET PO PRN (21:18)
[2019-02-15] MEDS: TAMSULOSIN 0.4 MG CAP.SR.24H PO SCH (21:18)
[2019-02-15] MEDS: VALACYCLOVIR HCL 500 MG TABLET PO SCH (21:18)
--- NOTE | 2019-02-15 23:48 | NUR ---
patient with complaints to the back and naproxen dose given and relieved, snack given
--- NOTE | 2019-02-16 00:31 | NUR ---
jona requested for physical therapy and ordered Addendum: 02/16/19 at 0034 by ASHLEY JUAREZ RN charge nurse ordered to imnform the physician formtheb patient request and will call in the morning for orderes 999
--- NOTE | 2019-02-16 03:41 | NUR ---
iv cannula to the right wrist dislodge and leaking. discontinued, Addendum: 02/16/19 at 0643 by ASHLEY JUAREZ RN iv cannula to the right forearm gauge 22 .and iv canula to the left upper arm gauge 22 inserted aseptically and iv anbiotics
[2019-02-16 04:00] VITALS: BP_SYST 114; BP_SYST 117; BP_DIAS 56; BP_DIAS 60; BP_DIAS 68
[2019-02-16] MEDS: VANCOMYCIN 1.25 GM in IV D5W 500 ML IV SCH ×2 (04:07→15:31)
[2019-02-16] MEDS: CEFEPIME 2 GM in IV D5W 100 ML IV SCH (04:12)
[2019-02-16 06:27] LABS: BASOPHILS % (AUTO) 0.2 % (0.0-2.0); EOSINOPHILS % (AUTO) 0.8 % (0.0-6.0); HEMATOCRIT 41 % (39-51); HEMOGLOBIN 13.8 g/dL (13.5-17.5); LYMPHOCYTES % (AUTO) 7.6 % (20.0-44.0); MEAN CORPUSCULAR HGB CONC 34 g/dl (31.0-36.0); MEAN CORPUSCULAR VOLUME 101 fL (80-96); MONOCYTES # (AUTO) 1.5 /CMM (0.1-1.30); MONOCYTES % (AUTO) 11.5 % (2.0-12.0); NEUTROPHILS # (AUTO) 10.3 /CMM (1.8-8.9); NEUTROPHILS % (AUTO) 79.9 % (43.0-81.0); PLATELET COUNT (AUTO) 535 /CMM (150-450); RED BLOOD CELL COUNT(AUTO) 4.07 MIL/uL (4.5-6.0); WHITE BLOOD COUNT (AUTO) 12.9 K/uL (4.3-11.0)
[2019-02-16] MEDS: NAPROXEN 500 MG TABLET PO PRN (06:36)
[2019-02-16 06:55] LABS: CALCIUM, SERUM 8.3 mg/dL (8.5-10.1); CARBON DIOXIDE 23 mmol/L (21-32); CHLORIDE 98 mmol/L (98-107); GLUCOSE 347 mg/dL (74-106); MAGNESIUM 1.6 mg/dL (1.8-2.4); PHOSPHORUS 2.1 mg/dL (2.5-4.9); POTASSIUM 3.6 mmol/L (3.5-5.1); SODIUM SERUM 127 mmol/L (136-145); UREA NITROGEN, BLOOD 18 mg/dL (7-18)
--- NOTE | 2019-02-16 07:30 | NUR ---
RN OPENING NOTES RECEIVED PATIENT IN BED, AWAKE AND ABLE TO MAKE NEEDS KNOWN. PATIENT IS ALERT AND ORIENTED X4. NO PAIN OR ACUTE DISTRESS AT THIS TIME. RESPIRATION EVEN AND UNLABORED. SKIN IS DRY WARM TO TOUCH. PATIENT NOTED WITH IV ACCESS ON RIGHT FA G22 AND LEFT AC. INTACT AND PATENT. FLUSHING WELL. LLAMAS CATH IS IN PLACE DRAINING ON GRAVITY. ALL NEEDS ANTICIPATED. KEPT CLEAN AND DRY. CALL LIGHT WITHIN REACHED. BED LOCKED AND IN LOWEST POSITION. SAFETY MAINTAINED. PLAN OF CARE DISCUSSED. WILL CONTINUE TO MONITOR.
[2019-02-16 08:00] VITALS: BP 117/76
[2019-02-16] MEDS: ENSURE ENLIVE CHOC 237 ML CAN PO SCH ×2 (08:36→12:26)
[2019-02-16] MEDS: FINASTERIDE (5 MG) 5 MG TABLET PO SCH (08:36)
[2019-02-16] MEDS: LACTOBACILLUS RHAMNOSUS GG 1 EACH CAP.SPRINK PO SCH (08:36)
[2019-02-16] MEDS: ENOXAPARIN SODIUM 40 MG/0.4 ML DISP.SYRIN SQ SCH (08:38)
[2019-02-16] MEDS: AMMONIUM LACTATE 227 GM BOTTLE TP SCH (08:40)
[2019-02-16] MEDS: VALACYCLOVIR HCL 500 MG TABLET PO SCH (08:46)
[2019-02-16] MEDS ORDERED: FINA5TAB3 PO (10:56)
[2019-02-16] MEDS ORDERED: TAMS-12 PO (10:56)
[2019-02-16] MEDS ORDERED: LIDO30AD10 TP (10:56)
[2019-02-16] MEDS ORDERED: VANC1.5P20 IV (10:56)
[2019-02-16] MEDS ORDERED: LACT1CAP72 PO (10:56)
[2019-02-16] MEDS ORDERED: VALA500T PO (10:56)
[2019-02-16] MEDS: Magnesium 1GM/D5W 100ML PREMIX 100 ML IV SCH ×2 (11:40→12:47)
[2019-02-16] MEDS: ACETAMINOPHEN 325 MG TABLET PO PRN (13:37)
[2019-02-16] MEDS: LIDOCAINE 5% (PATCH) 1 EA PATCH TP SCH (14:01)
[2019-02-16] MEDS ORDERED: K PHOS NEUTRAL 250 MG TABLET PO ONE (15:00)
--- NOTE | 2019-02-16 15:00 | NUR ---
PANEL EDGE PAINTER NOTES TWO EMT ARRIVED AT THE UNIT TO CAP INSPECTOR PATIENT. ALL DISCHARGE PAPERS WAS SIGNED, AND WAS GIVEN TO EMT. PHOTOS WAS TAKEN AND WAS PLACED ON THE CHART FOR RECORDS. REPORT WAS ALSO GIVEN TO EMT AND TO MAGED SALCIDO AT [facility]. PATIENT WAS PLACED IN THE GURNEY. PATIENT LEFT THE UNIT IN STABLE CONDITION.
== END 2019-02-16 16:30 | DRG 871 ==
LOC: ER 12:35 → ICU 14:21 → TELE-TD 02-10 21:42 → MEDSG1 02-11 10:23
PROVIDERS: ADMIT Nurse Practitioner Acute Care; ATTEND Nurse Practitioner Acute Care
DX: A41.9 Sepsis, unspecified organism (principal); N17.0 Acute kidney failure with tubular necrosis; I21.4 Non-ST elevation (NSTEMI) myocardial infarction; R65.21 Severe sepsis with septic shock; G92 Toxic encephalopathy; N39.0 Urinary tract infection, site not specified; E87.2 Acidosis; E87.1 Hypo-osmolality and hyponatremia; N13.8 Other obstructive and reflux uropathy; N13.2 Hydronephrosis with renal and ureteral calculous obstruction; N31.9 Neuromuscular dysfunction of bladder, unspecified; E87.5 Hyperkalemia; K76.89 Other specified diseases of liver; D72.829 Elevated white blood cell count, unspecified; E86.0 Dehydration; H90.5 Unspecified sensorineural hearing loss; F19.10 Other psychoactive substance abuse, uncomplicated; B02.9 Zoster without complications; N40.1 Benign prostatic hyperplasia with lower urinary tract symptoms; R74.0 Nonspecific elevation of levels of transaminase and lactic acid dehydrogenase [LDH]; L85.3 Xerosis cutis; S90.812A Abrasion, left foot, initial encounter; S90.811A Abrasion, right foot, initial encounter; X58.XXXA Exposure to other specified factors, initial encounter; Y92.89 Other specified places as the place of occurrence of the external cause; S81.812A Laceration without foreign body, left lower leg, initial encounter
CPT/HCPCS: 36415; 36600; 70450-TC; 71045-TC; 76770-TC; 80048-TC; 80053-TC; 80061-TC; 80076-TC; 80202-TC; 80305; 81000-TC; 82550-TC; 82570-TC; 82803-TC; 82962-TC; 83605-TC; 83735-TC; 83970; 84100-TC; 84155; 84155-TC; 84165; 84300-TC; 84443-TC; 84484-TC; 85025-TC; 85730-TC; 87040-TC; 87081-TC; 87086-TC; 93307-TC; 94799-TC; 97110-TC; 97116-TC; 97530-TC; A4216; G0378; G0480; J0692; J1650; J1940; J2060; J3370; J3475; J7030; J7040; J7050; J7060

== ENCOUNTER 2019-03-30 18:49 | Emergency (ER) | payer MEDICARE ==
[~2019-03-30] VITALS: Ht 193 cm; Wt 83.9 kg
[~2019-03-30 18:49] MED LIST changes: +ASPI-605 PO; +CYCL10TA9 PO; +FINA5TAB3 PO; +LACT1CAP72 PO; +LIDO30AD10 TP; -NO MEDS; +TAMS-12 PO; +VALA500T PO; +VANC1.5P20 IV
[2019-03-30 19:02] VITALS: BP 127/72
--- NOTE | 2019-03-30 19:17 | NUR ---
Patient discharged to home in stable condition. Written and verbal after care instructions given. Patient verbalizes understanding of instruction. IV inserted on the RFA G 20.
== END 2019-03-30 19:16 | disposition home or self-care (01) ==
LOC: ER 18:59
DX: Z45.2 Encounter for adjustment and management of vascular access device (principal); I10 Essential (primary) hypertension; Z79.82 Long term (current) use of aspirin